=== PATIENT | female | born 1970 ===

== ENCOUNTER → 2022-03-12 09:55 | Outpatient (CLI) | payer OTHER, SELFPAY ==
--- NOTE | ~2022-03-12 | MR_ITS ---
EXAMINATION: MR knee RT wo con DATE: 03/12/2022 10:30 INDICATION: 4-5 weeks of medial right knee pain TECHNIQUE: Magnetic resonance imaging (MRI) of the right knee was performed without intravenous contr ast. Sequences included coronal PD-weighted FSE, coronal PD-weighted FS FSE, sagittal T2-weighted FS E, sagittal PD-weighted FS FSE and axial PD weighted fat saturated FSE. COMPARISON: None. FINDINGS: Medial compartment: Complex likely parrot beak configuration tear extending peripherally and medially from the inner free edge of the lateral side of the posterior horn of the medial meniscus. Mild partial-thickness chondr al fissuring involving less than 50% the cartilage thickness and without degenerative subchondral damien nges at the anterior aspect of the weightbearing medial femoral condyle. Articular cartilage is jeromy l. Lateral compartment: Lateral meniscus is normal. Articular cartilage is normal. Patellofemoral compartment: Small region of partial-thickness chondral fissuring involving approximately 50% the cartilage thickn ess at the inferomedial aspect of the lateral patellar facet. Remaining patellofemoral cartilage is n ormal. Ligaments and tendons: Anterior and posterior cruciate ligaments are normal. The medial collateral ligament and fibular evelyne ateral ligament complex are normal. The extensor mechanism is normal. The visualized medial and later al hamstring tendons as well as the iliotibial band are normal. Fluid: Small likely reactive joint effusion at the suprapatellar pouch. No other abnormal fluid collections identified. No loose osteochondral bodies identified. Osseous/other: Normal marrow signal. No fracture or pathologic marrow replacing process. IMPRESSION: 1. Complex parrot beak configuration tear at the posterior horn of the medial meniscus. 2. Mild osteoarthritis with moderate grade chondromalacia in the medial and patellofemoral compartmen ts. Reviewed, dictated and finalized at location A. IMPRESSION: 1. Complex parrot beak configuration tear at the posterior horn of the medial m eniscus. 2. Mild osteoarthritis with moderate grade chondromalacia in the medial and pat ellofemoral compartments.
== END ==
PROVIDERS: Visit Provider Physician Assistant
DX: M17.11 Unilateral primary osteoarthritis, right knee (principal)
CPT/HCPCS: 73721